=== PATIENT | female | born 1960 | race African-American/Black ===

== ENCOUNTER 2016-10-09 05:51 | Day surgery (SDC) | payer BC ==
--- NOTE | ~2016-10-09 | EGD ---
EGD REPORT [facility] [address] [place] [id number] NAME: ELIZA RIVERA : [birth year] STATUS : REG [facility] [place] PAT#: [id number] AGE: 56 ADM/REG DATE : 10/09/16 MR#: [id number] REPORT SERV DATE: 10/09/16 DICTATED BY: ARIN CHOWDARY DATE: 10/09/16 REPORT STATUS : Draft TRANSCRIBED BY: [facility] DATE: 10/09/16 [facility] Patient Name: Eliza Rivera Date of : 1960 Attending MD: JOSELINE FERNÁNDEZ MD Procedure Date No Time: 10/09/2016 Procedure: Colonoscopy Indications: Screening for colorectal malignant neoplasm; average risk; index exam. Patient Profile: Informed consent was obtained from the patient by me prior to the procedure. Risks, benefits, and alternatives were discussed including the risk of bleeding, perforation, infection, reaction to medicine, missed lesion, and cardiopulmonary complications. Referring MD: SRUTHI PETTIT MD Medicines: Monitored Anesthesia Care Complications: No immediate complications. Procedure: Pre-Anesthesia Assessment: - ASA Grade Assessment: III - A patient with severe systemic disease. After I obtained informed consent, the scope was passed under direct vision. Throughout the procedure, the patient's blood pressure, pulse, and oxygen saturations were monitored continuously. The CF [id number] was introduced through the anus and advanced to the cecum, identified by appendiceal orifice and ileocecal valve. The colonoscope was slowly withdrawn with careful examination all mucosal surfaces including specific attention around flexures and tip deflection behind folds; retroflexion performed in rectum. The colonoscopy was performed without difficulty. The patient tolerated the procedure well. The quality of the bowel preparation was adequate. The ileocecal valve, appendiceal orifice and rectum were photographed. Findings: A sessile polyp was found in the ascending colon. The polyp was 5 mm in size. The polyp was removed with a cold biopsy forceps. Resection and retrieval were complete. A pedunculated polyp was found in the sigmoid colon at 17 cm proximal to the anus. The polyp was 15 to 20 mm in size. The polyp was removed with a hot snare. Resection and retrieval were complete. Area was successfully injected with of a 1:10,000 solution of epinephrine for a lift polypectomy submucosal to stalk prior to removal. EGD REPORT [place] [id number] [facility] [place]. [address] NAME: ELIZA RIVERA : [birth year] STATUS : REG [facility]#: [id number] AGE: 56 ADM/REG DATE : 10/09/16 MR#: [id number] REPORT SERV DATE: 10/09/16 DICTATED BY: ARIN CHOWDARY DATE: 10/09/16 REPORT STATUS : Draft TRANSCRIBED BY: [facility] DATE: 10/09/16 Impression: - One 5 mm polyp in the ascending colon. Resected and retrieved. - One 15 to 20 mm polyp in the sigmoid colon at 17 cm proximal to the anus. Resected and retrieved. Recommendation: - Patient has a contact number available for emergencies. The signs and symptoms of potential delayed complications were discussed with the patient. Return to normal activities tomorrow. Written discharge instructions were provided to the patient. - Patient has a contact number available for emergencies. The signs and symptoms of potential delayed complications were discussed with the patient. Return to normal activities tomorrow. Written discharge instructions were provided to the patient. - Regular diet. - Continue present medications. - No aspirin, ibuprofen, naproxen, or other non-steroidal anti-inflammatory drugs for 2 weeks after polyp removal. - Await pathology results. - Repeat colonoscopy for surveillance based on pathology results. Procedure Code(s): --- Professional --- 13273, Colonoscopy, flexible, proximal to splenic flexure; with removal of tumor(s), polyp(s), or other lesion(s) by snare technique 15283, 59, Colonoscopy, flexible, proximal to splenic flexure; with biopsy, single or multiple Diagnosis Code(s): --- Professional --- D12.5, Benign neoplasm of sigmoid colon D12.6, Benign neoplasm of colon, unspecified D12.2, Benign neoplasm of ascending colon Z12.11, Encounter for screening for malignant neoplasm of colon CPT copyright 2013 [employer]. All rights reserved. The codes documented in this report are preliminary and upon dividend clerk review may be revised to meet current compliance requirements. JOSELINE FERNÁNDEZ MD 10/09/2016 7:36 AM EGD REPORT [facility] [address] [address] NAME: ELIZA RIVERA : [birth year] STATUS : REG [facility] [place] PAT#: [id number] AGE: 56 ADM/REG DATE : 10/09/16 MR#: [id number] REPORT SERV DATE: 10/09/16 DICTATED BY: ARIN CHOWDARY DATE: 10/09/16 REPORT STATUS : Draft TRANSCRIBED BY: [employer] DATE: 10/09/16 This report has been signed electronically. Number of Addenda: 0 Note Initiated On: 10/09/2016 7:04 AM Scope Withdrawal Time 0 hours 17 minutes 35 seconds [address] [id number]
[~2016-10-09 05:51] MED LIST: ADVAIR INH; ADVIL PO; EXFORGE1 TA2 PO; MAX25 PO; PROVHFA INH
== END 2016-10-09 23:59 | disposition home or self-care (01) ==
LOC: DMU 05:51
PROVIDERS: Internal Medicine Gastroenterology
PROC: 0DBK8ZX Excision of Ascending Colon, Via Natural or Artificial Opening Endoscopic, Diagnostic (ICD-10-PCS; principal; 2016-10-09 07:00)
PROC: 0DBN8ZX Excision of Sigmoid Colon, Via Natural or Artificial Opening Endoscopic, Diagnostic (ICD-10-PCS; 2016-10-09 07:00)
DX: Z12.11 Encounter for screening for malignant neoplasm of colon (principal); D12.5 Benign neoplasm of sigmoid colon; K51.90 Ulcerative colitis, unspecified, without complications; E66.01 Morbid (severe) obesity due to excess calories; G47.33 Obstructive sleep apnea (adult) (pediatric); J45.909 Unspecified asthma, uncomplicated; K21.9 Gastro-esophageal reflux disease without esophagitis; I10 Essential (primary) hypertension; Z79.1 Long term (current) use of non-steroidal anti-inflammatories (NSAID); Z79.899 Other long term (current) drug therapy; Z98.51 Tubal ligation status; Z98.890 Other specified postprocedural states; Z90.49 Acquired absence of other specified parts of digestive tract
CPT/HCPCS: 88305